=== PATIENT | male | born 1990 | race Caucasian/White ===

== ENCOUNTER 2020-03-21 14:22 | Outpatient (REF) | payer MEDICAID, SELFPAY ==
[2020-03-22 01:51] LABS: COVID-19 RT-PCR UVMMC Result Negative (Negative)
== END 2020-03-21 14:42 ==
LOC: NCHCN 14:22
PROVIDERS: PCP Physician Assistant; Visit Provider Nurse Practitioner Family
DX: J06.9 Acute upper respiratory infection, unspecified (principal)
CPT/HCPCS: U0003

== ENCOUNTER 2020-12-27 16:54 | Outpatient (REF) | payer MEDICAID, SELFPAY ==
[2020-12-27 18:33] LABS: Anion Gap 8.3 mmol/L (3-11); BUN 17 mg/dL (7-18); CO2 29.7 mmol/L (21.0-32.0); CREATININE 1.3 mg/dL (0.70-1.30); Calcium 9.3 mg/dL (8.5-10.1); Calculated LDL 191 mg/dL (<100); Chloride 104 mmol/L (98-107); Cholesterol 264 mg/dL (<200); Glucose 102 mg/dL (74-106); HDL Cholesterol 57 mg/dL (40-60); Potassium 4.2 mmol/L (3.5-5.1); Sodium 142 mmol/L (136-145); Triglyceride 84 mg/dL (<150)
== END 2020-12-27 16:55 | disposition home or self-care (01) ==
LOC: NCHCN 16:54
PROVIDERS: PCP Physician Assistant; Visit Provider Physician Assistant
DX: Z13.220 Encounter for screening for lipoid disorders (principal); Z13.228 Encounter for screening for other metabolic disorders; Z00.00 Encounter for general adult medical examination without abnormal findings
CPT/HCPCS: 80048; 80061

== ENCOUNTER 2022-12-04 18:38 | Outpatient (REF) | payer MEDICAID, SELFPAY ==
[2022-12-04 18:38] LABS: ALT 26 U/L (16-63); AST 23 U/L (15-37); Albumin 3.9 g/dL (3.4-5.0); Alkaline Phosphatase 91 U/L (46-116); Anion Gap 7.8 mmol/L (3-11); BUN 17 mg/dL (7-18); Bilirubin, Total 0.3 mg/dL (0.2-1.0); CO2 29.2 mmol/L (21.0-32.0); CREATININE 1.2 mg/dL (0.70-1.30); Calcium 9.2 mg/dL (8.5-10.1); Calculated LDL 66 mg/dL (<100); Chloride 104 mmol/L (98-107); Cholesterol 126 mg/dL (<200); Estimated GFR 81.89 (mL/min/1.73m2); Glucose 119 mg/dL (74-106); HDL Cholesterol 50 mg/dL (40-60); Potassium 3.4 mmol/L (3.5-5.1); Sodium 141 mmol/L (136-145); Triglyceride 54 mg/dL (<150)
== END 2022-12-04 18:39 | disposition home or self-care (01) ==
LOC: NCHCN 18:38
PROVIDERS: PCP Physician Assistant; Visit Provider Physician Assistant
DX: E78.5 Hyperlipidemia, unspecified (principal)
CPT/HCPCS: 80053; 80061

== ENCOUNTER 2023-06-26 17:45 | Outpatient (REF) | payer OTHER, SELFPAY ==
[2023-06-26 21:13] LABS: Source Nasal/Nares
[2023-06-26 22:39] LABS: COVID-19 PCR Negative (Negative)
== END 2023-06-26 17:46 | disposition home or self-care (01) ==
LOC: LBN 17:45
PROVIDERS: PCP Physician Assistant; Visit Provider Physician Assistant Medical
DX: Z20.828 Contact with and (suspected) exposure to other viral communicable diseases (principal)
CPT/HCPCS: 87635

== ENCOUNTER 2023-12-05 10:51 | Outpatient (REF) | payer MEDICAID, SELFPAY ==
[2023-12-05 16:18] LABS: ALT 27 U/L (16-63); AST 23 U/L (15-37); Albumin 3.8 g/dL (3.4-5.0); Alkaline Phosphatase 71 U/L (46-116); Anion Gap 5.5 mmol/L (3-11); BUN 21 mg/dL (7-18); Bilirubin, Total 0.2 mg/dL (0.2-1.0); CO2 31.5 mmol/L (21.0-32.0); CREATININE 0.9 mg/dL (0.70-1.30); Calcium 8.9 mg/dL (8.5-10.1); Calculated LDL 91 mg/dL (<100); Chloride 106 mmol/L (98-107); Cholesterol 161 mg/dL (<200); Estimated GFR 114.93 (mL/min/1.73m2); Glucose 104 mg/dL (74-106); HDL Cholesterol 56 mg/dL (40-60); Potassium 4.2 mmol/L (3.5-5.1); Sodium 143 mmol/L (136-145); Total Protein 6.6 g/dL (6.4-8.2); Triglyceride 73 mg/dL (<150)
[2023-12-05 16:26] LABS: Hemoglobin A1C 5.4 % (<5.7)
== END 2023-12-05 10:52 | disposition home or self-care (01) ==
LOC: NCHCN 10:51
PROVIDERS: PCP Physician Assistant; Referring Provider Physician Assistant; Visit Provider Physician Assistant
DX: E78.5 Hyperlipidemia, unspecified (principal); R73.9 Hyperglycemia, unspecified
CPT/HCPCS: 80053; 80061; 83036

== ENCOUNTER 2024-09-13 09:38 | Emergency (ER) | payer MEDICAID, SELFPAY ==
[2024-09-13 09:43] VITALS: BP 137/89; PULSE 99; RESP 12; TEMP 36.8; O2SAT 98
[2024-09-13] MEDS: Lidocaine 1% Pres-Free 30 ML VIAL IJ (10:05)
[2024-09-13] MEDS: Diph,Pertuss(Acell),Tet Vac/Pf 0.5 ML SYR IM (10:12)
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
--- OUTSIDE RECORDS SUMMARY | 2024-09-13 10:58 | XMS_ITS | Encounter Summary ---
Author Organization [facility] Address [address] [place] [address] Care Team Providers Care Bus Inspector Name Role Phone Unavailable Primary Care Provider Unavailabl e Encounter Details Date Type Department Care Team (Late st Contact Info) Description 03/21/2020 Lab Requisition [facility]ology & Laboratory Medicine - [facility] [address] [place] [address] Outr Resulting Lab, Provider Social History Tobacco Use Types Packs/Day Years Used Date Smoking Tobacco: Never Assessed Sex and Gender Information Value Date Recorded Sex Assigned at Not on file Legal Sex Male 17:19 EDT Gender Identity Not on file Sexual Orientation Not on file documented as of this encounter Plan of Treatment Not on file documented as of this encounter Procedures Procedure Name Priority Date/Time Associated Diagnosis Comments ZZCOVID-19 TEST [facility] PCR Today 03/21/2020 13:29 EDT COVID-19 TESTING Routine 03/21/2020 13:2 9 EDT documented in this encounter Results * COVID-19 TEST [facility] PCR (03/21/2020 13:29 EDT) Swab ENTIRE NASOPHARYNX / Unknown 03/21/2020 13:29 EDT 03/21/2020 20:22 EDT us Provider Outr Resulting Lab MICROBIOLOGY - GENER AL ORDERABLES Final Result [facility] [address] [place] [address] * COVID-19 TESTING (03/21/2020 13:29 EDT) COVID-19 rt-PCR Result Negative Negative 03/22/2020 1:47 EDT [facility] Comment: This test has not been FDA cleared or approved. This test has been authorized by FDA under an EUA for use by authorized laboratories. This test has been authorized only for detection of nucleic acid from 2019-nCoV, not for any other viruses or pathogens. This test is only authorized for the duration of the declaration that circumstances exist justifying the authorization of emergency use of in vitro diagnostic tests for detection and/or diagnosis of 2019-nCoV under section 564(b)(1) of Act, 21 U.S.C ?? 360bbb-3(b) (1), unless the authorization is terminated or revoked sooner. Negative results do not preclude 2019-nCoV infection and should not be used as the sole basis for treatment or other patient management decisions. Negative results must be combined with clinical observations, patient history, and epidemiological information. Performed on the [employer] Fusion instrument Performing Lab [place] [facility] 03/22/2020 1:47 EDT [facility] Swab 03/21/2020 13:2 9 EDT 03/21/2020 20:22 EDT us Provider Outr Resulting Lab MICROBIOLOGY - GENER AL ORDERABLES Final Result [facility] [address] [place] [address] documented in this encounter Visit Diagnoses Not on filedocumented in this encounter
--- OUTSIDE RECORDS SUMMARY | 2024-09-13 10:58 | XMS_ITS | Referral Summary ---
Author Organization [facility] Address [address] [place] [address] Care Team Providers Care Technical Support 1 Software Engineer Name Role Phone Unavailable Primary Care Provider Unavailabl e Social History Tobacco Use Types Packs/Day Years Used Date Smoking Tobacco: Never Assessed Interpersonal Safety Answer Date Record ed Physically Hurt Never 08/23/2020 Verbally Threaten Not on file 08/23/2020 Sex and Gender Information Value Date Recorded Sex Assigned at Not on file Legal Sex Male 17:19 EDT Gender Identity Not on file Sexual Orientation Not on file Plan of Treatment Not on file
--- OUTSIDE RECORDS SUMMARY | 2024-09-13 10:58 | XMS_ITS | Data Portability ---
Author Organization [facility] Address [place] [address] Assessment No assessment recorded. Plan of Treatment Reminders Order Date Submit Date Provider Last Modified By Organization Details Last Modified Time Details Appointments Annual Wellness Exam 40 2024 02:00P M HERIBERTO DELANEY Not available Not available Not available Lab HbA1c (hemoglob in A1c), blood [address] [facility] (Registration ), [address] [place] [address] [place], [address], 12/12/2023 09:55:46 lipid panel, serum [address] [facility] (Registration ), [address] [place] [address] [place], [address], 12/12/2023 09:55:36 CMP, serum or plasma 2023 024 [facility] (Registration ), [address] [place] [address] [place], [address], 12/05/2023 16:19:59 Referral None recorded. Procedures None recorded. Surgeries None recorded. Imaging None recorded. Medication Orders dextroamp hetamine- amphetami ne 20 mg tablet 2023 024 [facility], [address] [facility], [place], [address], 12/05/2023 10:36:21 dextroamp hetamine- amphetami ne 20 mg tablet 2023 024 [facility], [address] [place], [address], 07/29/2024 10:57:24 dextroamp hetamine- amphetami ne 20 mg tablet 2023 024 [facility], [address] [place] [address], [id number], 07/29/2024 10:57:22 dextroamp hetamine- amphetami ne 20 mg tablet 2023 024 [facility], [address] [place] [address], [id number], 07/29/2024 10:57:22 Patient TargetsNo targets recorded. Patient InstructionsNo instructions recorded. Reason for Referral None Reported. Results Created Date Observation Date Name Description Value Unit Range Abnormal Flag Note LastModifiedBy Organization Detail LastModifiedTime 12/05/1912/05/2023 COMPR EHENS MARCOS METAB OLIC PANEL calcium 8.9 mg/dL 8.5-10 .1 normal Not Available [address] [place], [address] 12/05/2023 16:19:58 12/05/19 24 12/05/2023 COMPR EHENS MARCOS METAB OLIC PANEL glucose 104 mg/dL 74-106 normal Not Available Yaa raines [address] [place], [address] 12/05/2023 16:19:58 12/05/19 24 12/05/2023 COMPR EHENS AMRCOS METAB OLIC PANEL BUN 21 mg/dL 7-18 high Not Available Yaa raines [address] [place], [address] 12/05/2023 16:19:58 12/05/19 24 12/05/2023 COMPR EHENS MARCOS METAB OLIC PANEL creatinine 0.9 mg/dL 0.70-1 .30 normal Not Available [address] [place], [address] 12/05/2023 16:19:58 12/05/19 24 12/05/2023 COMPR EHENS MARCOS METAB OLIC PANEL estimated GFR 114.93 mL/min /1.73m 2 The eGFR is calcu lated from a serum creat inine using the CKD-E PI 2020 equat ion. Other varia bles requi red for the equat ion are gende r and age; this equat ion does not inclu de a race coeff icien t. This equat ion has simil ar overa ll perfo rmanc e to previ ous equat ions excep t value s may diffe r, in parti cular , in patie nts with highe r value s of eGFR and young er-ag ed adult s. Not Available [address] [place], [address] 12/05/2023 16:19:58 12/05/19 24 12/05/2023 COMPR EHENS MARCOS METAB OLIC PANEL total protein 6.6 g/dL 6.4-8. 2 normal Not Available [address] [place], [address] 12/05/2023 16:19:58 12/05/19 24 12/05/2023 COMPR EHENS MARCOS METAB OLIC PANEL albumin 3.8 g/dL 3.4-5. 0 normal Not Available [address] [place], [address] 12/05/2023 16:19:58 12/05/19 24 12/05/2023 COMPR EHENS MARCOS METAB OLIC PANEL bilirubin, total 0.2 mg/dL 0.2-1. 0 normal Not Available [address] [place], [address] 12/05/2023 16:19:58 12/05/19 24 12/05/2023 COMPR EHENS MARCOS METAB OLIC PANEL alk phos 71 U/L 46-116 normal Not Available [address] [place], [address] 12/05/2023 16:19:58 12/05/19 24 12/05/2023 COMPR EHENS MARCOS METAB OLIC PANEL sodium 143 mmol/ L 136-14 5 normal Not Available [address] [place] [place], [address] 12/05/2023 16:19:58 12/05/19 24 12/05/2023 COMPR EHENS MARCOS METAB OLIC PANEL potassium 4.2 mmol/ L 3.5-5. 1 normal Not Available [address] [place], [address] 12/05/2023 16:19:58 12/05/19 24 12/05/2023 COMPR EHENS MARCOS METAB OLIC PANEL chloride 106 mmol/ L 98-107 normal Not Available [address] [place] [place], [address] 12/05/2023 16:19:58 12/05/19 24 12/05/2023 COMPR EHENS MARCOS METAB OLIC PANEL CO2 31.5 mmol/ L 21.0-3 2.0 normal Not Available [address] [place] [place], [address] 12/05/2023 16:19:58 12/05/19 24 12/05/2023 COMPR EHENS MARCOS METAB OLIC PANEL anion gap 5.5 mmol/ L 3-11 normal Not Available [address] [place] [place], [address] 12/05/2023 16:19:58 12/05/19 24 12/05/2023 COMPR EHENS MARCOS METAB OLIC PANEL AST 23 U/L 15-37 normal Not Available Yaa raines [address] [place], [address] 12/05/2023 16:19:58 12/05/19 24 12/05/2023 COMPR EHENS MARCOS METAB OLIC PANEL ALT 27 U/L 16-63 normal Not Available Yaa raines [address] [place], [address] 12/05/2023 16:19:58 12/05/19 24 12/05/2023 LIPID 2 cholesterol 161 mg/dL <200 Not Available Sheryl harp [address] [place], [address] 12/05/2023 16:19:59 12/05/19 24 12/05/2023 LIPID 2 triglyceride 73 mg/dL <150 Not Available [address] [place], [address] 12/05/2023 16:19:59 12/05/19 24 12/05/2023 LIPID 2 HDL cholesterol 56 mg/dL 40-60 Not Available Arjun meridavictor manuel [address] [place] [place], [address] 12/05/2023 16:19:59 12/05/19 24 12/05/2023 LIPID 2 calculated LDL 91 mg/dL <100 Natio nal Raisa stero l Educa tion Progr am (NCEP -ATPI II) class ifica tions : Raisa stero l <200 mg/dL Enedelia able Raisa stero l 200-2 39 mg/dL Borde rline High Raisa stero l >or=2 40 mg/dL High HDL <40 mg/dL Low HDL >or=6 0 mg/dL High LDL <100 mg/dL Optim al LDL 100-1 29 mg/dL Near Optim al/Ab ove Optim al LDL 130-1 59 mg/dL Borde rline High LDL 160-1 89 mg/dL High LDL >or=1 90 mg/dL Very High *The above refer ence range is for adult s 18 years or older . Not Available [address] [place], [address] 12/05/2023 16:19:59 12/05/19 24 12/05/2023 HEMOG LOBIN A1C hemoglobin A1C 5.4 % <5.7 Refer ence Range s <5.7 Rosetta l 5.7-6 .4% Predi abete s 6.5% or great er Diagn ostic for diabe josi (if confi rmed) Refer ences : 1. Ameri can Diabe josi Assoc iatio n. Clas sific ation and Diagn osis of Diabe josi. Diabe josi Care 2019 Sep; 2(Sup pleme nt 1):S1 3-s28 . Not Available [address] [place], [address] 12/05/2023 16:34:04 06/15/20 24 06/14/2020 imagi ng/di agnos tic resul t No observ ation record ed. [email or web address] Not Available 06/15 03:59:08 06/15/20 24 06/14/2020 imagi ng/di agnos tic resul t No observ ation record ed. [email or web address] Not Available 06/15 03:59:11 Result Notes None recorded. Problems Name Problem SNOMED Code Status Onset Date Resolution Date Notes Provider Name and Address Organization Details Recorded Time Opioid dependen ce 43474802 Active 201606/01/20 22 - Comments only - Heriberto Delaney RPA - Continue on suboxone at [facility]. No relapse per patient. Problem Code: F11.20; Problem Code Type: ICD-10; Not Available [facility] 3 03:56:07 Attentio n deficit hyperact ivity disorder 969055353 Active 201604/29/20 23 - Comments only - Heriberto Delaney RPA - Well-con trolled on current medicati on manageme nt. No changes made today. Problem Code: F90.9; Problem Code Type: ICD-10; Not Available [facility] 3 03:56:07 Major depressi on, single episode 46212210 Active 201604/29/20 23 - Comments only - Heriberto Delaney RPA - Stable on sertrali ne. No changes made today. Problem Code: F32.9; Problem Code Type: ICD-10; Not Available [facility] 3 03:56:07 Nicotine dependen ce 40967404 Active 201604/29/20 23 - Comments only - Heriberto Delaney RPA - Preconte mplative . Problem Code: F17.200; Problem Code Type: ICD-10; Not Available [facility] 3 03:56:07 Gastroes ophageal reflux disease without esophagi tis 467822188 Active 201904/29/20 23 - Comments only - Heriberto Delaney RPA - He struggle s to taper down on PPI. He may have better success now that he is lost a signific ant amount of weight. Problem Code: K21.9; Problem Code Type: ICD-10; Not Available [facility] 3 03:56:07 Pain of right knee joint 14121199002 4100 Active 201912/28/19 21 - Comments only - Heriberto Delaney RPA - began around 2013. He continue s to want to put off any interven tion. He is nervous about moving forward with any surgery. Problem Code: M25.561; Problem Code Type: ICD-10; Not Available [facility] 3 03:56:07 Hyperlip idemia 42205556 Active 202004/29/20 23 - Comments only - Heriberto Delaney RPA - Continue s on statin. No changes in medicati on manageme nt made today. Encourag ed by his weight loss. He has been eating much healthie r. Cutting sugars out of his diet. Problem Code: E78.5; Problem Code Type: ICD-10; Not Available [facility] 3 03:56:08 Acute upper respirat ory infectio n 88546128 Completed 201903/24/2020 Problem Code: J06.9; Problem Code Type: ICD-10; Not Available [facility] 3 03:56:10 Otitis media of right ear 73760203757 23780 Completed 202204/29/2023 Problem Code: H66.91; Problem Code Type: ICD-10; Not Available [facility] 3 03:56:11 History and physical examinat samuel, administ rative Completed 202104/29/2023 Problem Code: Z02.89; Problem Code Type: ICD-10; Not Available [facility] 3 03:56:13 Screenin g for disorder Completed 201904/29/2023 Problem Code: Z13.9; Problem Code Type: ICD-10; Not Available [facility] 3 03:56:14 Elevated blood-pr essure reading without diagnosi s of hyperten kevin 221609524 Completed 201703/24/2020 Problem Code: R03.0; Problem Code Type: ICD-10; Not Available [facility] 3 03:56:15 Problem Notes None recorded. Procedures Surgical History None recorded. Imaging Results Imaging Date Name Status LastModified by [facility] Details LastModified Time 06/14/2020 imaging/diag nostic result completed Information not available 06/15/2024 03:59:08 06/14/2020 imaging/diag nostic result completed Information not available 06/15/2024 03:59:11 Procedure Notes None recorded. Medical Equipment None Reported. Allergies No known drug allergies Medications Name Sig Start Date Stop Date Status Note LastModified by Organization Details LastModified Time atorvastati n 20 mg tablet TAKE ONE TABLET BY MOUTH EVERY DAY 2023 active Not Available Not Available Not Avai lable dextroamphe tamine-amph etamine 10 mg tablet TAKE ONE TABLET BY MOUTH EVERY DAY in afternoon 08/27 completed Not Available Not Available Not Available sertraline 100 mg tablet TAKE TWO TABLETS BY MOUTH EVERY DAY active Not Available Not Available No t Available pantoprazol e 40 mg tablet,marta yed release Take 1 tablet by mouth once a day 2023 active Not Available Not Available Not Avai lable dextroamphe tamine-amph etamine 20 mg tablet TAKE ONE TABLET BY MOUTH THREE TIMES A DAY active Not Available Not Available No t Available amoxicillin 875 mg-potassiu m clavulanate 125 mg tablet 1 tablet by mouth twice a day 02/25 completed Not Available Not Available Not Available Vyvanse 40 mg capsule Take 1 capsule by mouth once a day 12/11 completed Not Available Not Available Not Available Suboxone 8 mg-[address] ONE FILM UNDER THE TONGUE EVERY OTHER DAY ALTERNATI NG WITH 1/2 FILM EVERY OTHER DAY 12/04 completed Not Available Not Available Not Available Suboxone 2 mg-0.5 mg sublingual film DISSOLVE ONE FILM UNDER TONGUE EVERY THIRD DAY active Not Available Not Available No t Available Suboxone 4 mg-[address] ONE FILM UNDER THE TONGUE EVERY DAY FOR 2 DAYS THEN TAKE 2MG FILM ON THIRD DAY active Not Available Not Available No t Available Suboxone 12 mg-3 mg sublingual film one film SL daily ([place] in Bg tripp) 03/07 completed Not Available Not Available Not Available Vitals Date Recorded Body height Body mass index (BMI) Body weight Body temperature Respiratory rate Heart rate Systolic blood pressure Diastolic blood pressure Provider Name and Address Organization Details Last Updated DateTime 4 169.67 cm 25.7 kg/m2 78922.5 6 g 98.6 [degF] 16 /min 88 /min 126 mm[Hg] 64 mm[Hg] NIRALI GORDILLO RN [facility] 08:45:29 Date Recorded Body height Body mass index (BMI) Body weight Body temperature Oxygen saturation Oxygen saturation in Arterial blood by Pulse oximetry Heart rate Respiratory rate Systolic blood pressure Diastolic blood pressure Provider Name and Address Organization Details Last Updated DateTime 4 169.67 cm 25.6 kg/m2 97832.3 6 g 98.2 [degF] 98 % 98 % 120 /min 16 /min 130 mm[Hg] 90 mm[Hg] Barb Pat on [facility] 09:47:56 Social History Question Answer Notes LastModified by Organization Details LastModified Time Tobacco Smoking Status Current Every Day Smoker NIRALI GORDILLO RN [facility], [facility] 12/05/2023 08:47:22 Is Blood Transfusion Acceptable In An Emergency? Yes Information not available 12/05/2023 What Type Of Diet Are You Following? REGULAR Information not available 12/05/2023 Do You Or Have You Ever Used E-cigarettes Or Vape? Current User Of Electronic Cigarettes Information not available 12/05/2023 How Many Days Of Moderate To Strenuous Exercise, Like A Brisk Walk, Did You Do In The Last 7 Days? 0 Information not available 12/05/2023 1) Date Of Last VPMS Check? 07/28/2024 Information not available 07/28/2024 2) VPMS Findings See Details VPMS - Suboxone 4-1mg Last Filled 07/20/24 Prescriber Lisa Timmons Adderall 20mg Tab Last Filled 07/03/24 #84 Information not available 07/28/2024 What Do You Do For Fun? Time With Kids, Outdoor Activities Information not available 12/05/2023 Would You Say That, In General, Your Health Is Very Good Information not available 12/05/2023 How Often Does Anyone, Including Family, Physically Hurt You? Never Information not available 12/05/2023 How Often Does Anyone, Including Family, Insult Or Talk Down To You? Never Information not available 12/05/2023 How Often Does Anyone, Including Family, Threaten You With Harm? Never Information not available 12/05/2023 How Often Does Anyone, Including Family, Scream Or Curse At You? Rarely Information not available 12/05/2023 Within The Past 12 Months, You Worried That Your Food Would Run Out Before You Got Money To Buy More. Never True Information not available 12/05/2023 Within The Past 12 Months, The Food You Bought Just Didn't Last And You Didn't Have Money To Get More. Never True Information not available 12/05/2023 How Hard Is It For You To Pay For The Very Basics Like Food, Housing, Medical Care, And Heating? Would You Say It Is: Not Hard At All Information not available 12/05/2023 In The Past 12 Months, Has Lack Of Reliable Transportation Kept You From Medical Appointments, Meetings, Work Or From Getting Things Needed For Daily Living? No Information not available 12/05/2023 What Is Your Housing Situation Today? I Have Housing. Information not available 12/05/2023 Who Do You Live With? Girlfriend Information not available 12/05/2023 How Often In The Past Year Have You Used Marijuana (including Smoking, Vaping, Dabbing, Or Edibles)? 4 Or More Times Per Week Information not available 12/05/2023 How Often In The Past Year Have You Used Prescription Medications That Were Not Prescribed To You? Never Information not available 12/05/2023 How Often In The Past Year Have You Taken Your Own Prescription Medication More Than The Way It Was Prescribed Or For Different Reasons Than Its Intended Purpose? Never Information not available 12/05/2023 How Often In The Past Year Have You Used Other Drugs (for Example, Heroin, Cocaine, Meth, Salvia, Inhalants)? Never Information not available 12/05/2023 Have You Ever Used IV Drugs? No Information not available 12/05/2023 Date Of Most Recent SBINS 12/05/2023 Information not available 12/05/2023 How Many Children Do You Have? 2 Information not available 12/05/2023 What Is Your Relationship Status? Single Information not available 12/05/2023 At What Age Did You Start Smoking Tobacco? 17 [email or web address] Information not available 07/29/2024 Do You Or Have You Ever Used Smokeless Tobacco? Never Used Smokeless Tobacco Information not available 12/05/2023 How Much Tobacco Do You Smoke? 1 PPD Information not available 12/05/2023 What Types Of Sporting Activities Do You Participate In? None Information not available 12/05/2023 Has Tobacco Cessation Counseling Been Provided? Yes Information not available 12/05/2023 On What Date Was Tobacco Cessation Counseling Provided? 12/05/2023 Information not available 12/05/2023 Do You Or Have You Ever Used Any Other Forms Of Tobacco Or Nicotine? Yes Information not available 12/05/2023 Sex: Male Functional Status Question Answer Note LastModified by Organization D etails LastModified Time What is your exercise level? None Information not available 12/05/2023 Mental Status None recorded. Family History Nothing Reported. Medical History No medical history recorded. Immunizations Vaccine Type Date Status Note Provider Nam e and Address Organization Details Recorded Time Tdap 07/27/2015 completed Not Available [facility] 08/09/2023 05:06:12 Past Encounters Encounter ID Performer Location Encounter Start Date Encounter Closed Date Diagnosis/Indication Diagnosis SNOMED-CT Code Diagnosis ICD10 Code [id number] NIRALI GORDILLO RN [place] [address] [place] [address] 12/05/2023 08:29:54 12/05/2023 09:20:07 Hyperlipidemia 68502382 E78.5 Hyperglycemia 21476075 R 73.9 Adult [facility] th examination 639337297 Z00.00 Attention deficit hyperactivity disorder 022808537 F90.9 [id number] HERIBERTO DELANEY PA-C [facility] [address] [place] [address] 07/29/2024 09:38:53 07/29/2024 10:07:11 Nicotine dependence 44683787 F17.200 Opioid dependence 681379 00 F11.20 Major depr ession, single episode 57284877 F32.9 Hyperlipidemia 43775391 E78.5 Gastroesop hageal reflux disease without esophagitis 861218064 K21.9 Attention deficit hyperactivity disorder 625902665 F90.9 Health Concerns Section Related Observation LastModified by Organization Detai ls LastModified Time None Recorded Concern Status LastModified by Organization Details LastModified Time None Recorded Advance Directives Directive None Recorded Payers Encounter Date Sequence Insurance Name Policy Number Policy Perry Covered Member ID Perry Member ID Guarantor Name 07/29/2024 2 *SELF PAY* Co vannesa Anderson 07/29/2024 1 [facility] (MEDICAID) Alec Anderson [id number] Alec Anderson Notes Date Note Type Note Provider Name and Address Organization Details Recorded Time 12/05/2023 text/html Alec is here fo r physical exam. He has been feeling well. Really no significant concerns. He has lost weight through healthier eating habits. Has cut back on sugars. Occasionally he will feel a brief electric shock type sensation in his head if he misses a sertraline dose. No associated headache or pain. No associated visual disturbance. He has mild night sweats. NIRALI GORDILLO RN [facility], [facility] 12/05/2023 12:35:10 07/29/2024 text/html Alec is here fo r follow-up of ADHD, chronic depression, nicotine dependence, and hyperlipidemia. Discontinued atorvastatin on his own. Did not know if he needed to continue taking the medication. Otherwise he is doing well. He has been unable to get off pantoprazole. Heartburn returns if he misses a day. He is slowly weaning down on Suboxone. HERIBERTO DELANEY PA-C [address], [place], [address], [facility]. 07/29/2024 10:57:37
--- OUTSIDE RECORDS SUMMARY | 2024-09-13 10:58 | XMS_ITS | Continuity of Care Document ---
Author Organization [facility] [place] [address] Assessment No assessment recorded. Plan of Treatment Reminders Order Date Submit Date Provider Last Modified By Organization Details Last Modified Time Details Appointments Annual Wellness Exam 40 2024 02:00P M HERIBERTO DELANEY Not available Not available Not available Lab None recorded. Referral None recorded. Procedures None recorded. Surgeries None recorded. Imaging None recorded. Medication Orders dextroamp hetamine- amphetami ne 20 mg tablet 2023 [facility] [place], [address], 07/29/2024 10:57:24 dextroamp hetamine- amphetami ne 20 mg tablet 2023 024 [facility], [address] [place], [address], 07/29/2024 10:57:22 dextroamp hetamine- amphetami ne 20 mg tablet 2023 024 [facility] [address] [place], [address], 07/29/2024 10:57:22 Patient TargetsNo targets recorded. Patient InstructionsNo instructions recorded. Reason for Referral None Reported. Problems Name Problem SNOMED Code Status Onset Date Resolution Date Notes Provider Name and Address Organization Details Recorded Time Opioid dependen ce 00218974 Active 201606/01/20 22 - Comments only - Heriberto Delaney RPA - Continue on suboxone at [facility]. No relapse per patient. Problem Code: F11.20; Problem Code Type: ICD-10; Not Available [facility] 3 03:56:07 Attentio n deficit hyperact ivity disorder 229166884 Active 201604/29/20 23 - Comments only - Heriberto Delaney RPA - Well-con trolled on current medicati on manageme nt. No changes made today. Problem Code: F90.9; Problem Code Type: ICD-10; Not Available [facility] 3 03:56:07 Major depressi on, single episode 76863722 Active 201604/29/20 23 - Comments only - Heriberto Delaney RPA - Stable on sertrali ne. No changes made today. Problem Code: F32.9; Problem Code Type: ICD-10; Not Available [facility] 3 03:56:07 Nicotine dependen ce 31403905 Active 201604/29/20 23 - Comments only - Heriberto Delaney RPA - Preconte mplative . Problem Code: F17.200; Problem Code Type: ICD-10; Not Available [facility] 03:[facility]:07 Gastroes ophageal reflux disease without esophagi tis 831211257 Active 201904/29/20 23 - Comments only - Heriberto Delaney RPA - He struggle s to taper down on PPI. He may have better success now that he is lost a signific ant amount of weight. Problem Code: K21.9; Problem Code Type: ICD-10; Not Available [facility] 3 03:56:07 Pain of right knee joint 09212549439 4100 Active 201912/28/19 21 - Comments only - Heriberto Delaney RPA - began around 2013. He continue s to want to put off any interven tion. He is nervous about moving forward with any surgery. Problem Code: M25.561; Problem Code Type: ICD-10; Not Available [facility] 3 03:56:07 Hyperlip idemia 33151358 Active 202004/29/20 23 - Comments only - Heriberto Bruno RPA - Continue s on statin. No changes in medicati on manageme nt made today. Encourag ed by his weight loss. He has been eating much healthie r. Cutting sugars out of his diet. Problem Code: E78.5; Problem Code Type: ICD-10; Not Available [facility] 3 03:56:08 Acute upper respirat ory infectio n 73472562 Completed 201903/24/2020 Problem Code: J06.9; Problem Code Type: ICD-10; Not Available [facility] 3 03:56:10 Otitis media of right ear 66822102072 23296 Completed 202204/29/2023 Problem Code: H66.91; Problem Code Type: ICD-10; Not Available [facility] 3 03:56:11 History and physical examinat ion, administ ratisuzie Completed 202104/29/2023 Problem Code: Z02.89; Problem Code Type: ICD-10; Not Available [facility] 3 03:56:13 Screenin g for disorder Completed 201904/29/2023 Problem Code: Z13.9; Problem Code Type: ICD-10; Not Available [facility] 3 03:56:14 Elevated blood-pr essure reading without diagnosi s of hyperten kevin 435251363 Completed 201703/24/2020 Problem Code: R03.0; Problem Code Type: ICD-10; Not Available [facility] 3 03:56:15 Problem Notes None recorded. Medical Equipment None Reported. [...] 1 tablet by mouth once a day 10/30/ 2024 active Not Available Not Available Not Avai [...] one film SL daily ([place] in [place]g le) 03/07 completed Not Available Not Available Not Available Vitals Date Recorded Body height Body mass index (BMI) Body weight Body temperature Oxygen saturation Oxygen saturation in Arterial blood by Pulse oximetry Heart rate Respiratory rate Systolic blood pressure Diastolic blood pressure Provider Name and Address Organization Details Last Updated DateTime 4 169.67 cm 25.6 kg/m2 12027.3 6 g 98.2 [degF] 98 % 98 % 120 /min 16 /min 130 mm[Hg] 90 mm[Hg] Barb Encarnaci on [facility] 09:47:56 Social History Question Answer Notes LastModified by Organization Details LastModified Time Tobacco Smoking Status Current Every Day Smoker NIRALI GORDILLO RN null, [facility] 12/05/2023 08:47:22 Is Blood Transfusion Acceptable In [...] Recorded Time Tdap 07/27/2015 completed Not Available [facility] 08/09/2023 05:06:12 Past Encounters Encounter ID Performer Location Encounter Start Date Encounter Closed Date Diagnosis/Indication Diagnosis SNOMED-CT Code Diagnosis ICD10 Code [id number] HERIBERTO DELANEY PA-C [facility] [address] [place] [address] 07/29/2024 09:38:53 07/29/2024 10:07:11 Nicotine dependence 29712452 F17.200 Opioid dependence 116108 00 F11.20 Major depr ession, single episode 74509143 F32.9 Hyperlipidemia 07169844 E78.5 Gastroesop hageal reflux disease without esophagitis 422788137 K21.9 Attention deficit hyperactivity disorder 017698202 F90.9 Health Concerns Section Related Observation LastModified by Organization Detai ls LastModified Time None Recorded Concern Status LastModified by Organization Details LastModified Time None Recorded Payers Encounter Date Sequence Insurance Name Policy Number Policy Perry Covered Member ID Perry Member ID Guarantor Name 07/29/2024 2 *SELF PAY* Co vannesa Anderson 07/29/2024 1 [facility] (MEDICAID) Alec Anderson [id number] Alec Anderson Notes Date Note Type Note Provider Name and Address Organization Details Recorded Time 07/29/2024 text/html Alec is here fo r [...] Suboxone. HERIBERTO DELANEY PA-C [address], [place], [address], [facility]. 07/29/2024 10:57:37
--- OUTSIDE RECORDS SUMMARY | 2024-09-13 10:58 | XMS_ITS | Clinical Summary ---
Author Organization [facility] Address [address] [place] [address] Care Team Providers Care Physician Interventional Cardiologist Name Role Phone Unavailable Primary Care Provider [...] Orientation Not on file Plan of Treatment Health Maintenance Due Date Last Done Comments Hepatitis C Screen 1989 Hepatitis B Vaccine (1 of 3 - 19+ 3-dose series) 06/25 COVID-19 Vaccine ( - season) 2024
[2024-09-13 11:02] VITALS: BP 149/81; PULSE 94; RESP 12; O2SAT 98
== END 2024-09-13 11:03 | disposition home or self-care (01) ==
LOC: ER 10:57
PROVIDERS: Emergency Provider Physician Assistant; PCP Physician Assistant
DX: S61.210A Laceration without foreign body of right index finger without damage to nail, initial encounter (principal); S61.202A Unspecified open wound of right middle finger without damage to nail, initial encounter; S61.201A Unspecified open wound of left index finger without damage to nail, initial encounter; W22.8XXA Striking against or struck by other objects, initial encounter; Y93.89 Activity, other specified; F17.210 Nicotine dependence, cigarettes, uncomplicated
CPT/HCPCS: 12001; 90715; 99283; J2003